=== PATIENT | male | born 1980 | race African-American/Black ===

== ENCOUNTER → 2023-01-02 | Outpatient (REF) | payer OTHER ==
[~2023-01-02] MED LIST: AMLO10CA30; ATOR1TAB21; CARV25TA; CHLO125TA; CLON0.1D3
== END ==
LOC: M LAB REF 15:17
PROVIDERS: ATTEND Internal Medicine Hematology & Oncology
DX: E83.52 Hypercalcemia (principal)

== ENCOUNTER → 2023-01-17 | Outpatient (CLI) | payer OTHER | LOC: M PLAIMG 14:16 | PROVIDERS: ATTEND Internal Medicine Hematology & Oncology | DX: E83.52 Hypercalcemia (principal) ==